=== PATIENT | female | born 1945 | race Caucasian/White ===

== ENCOUNTER 2020-02-14 16:56 | Inpatient (IN) ==
[2020-02-14] MEDS ORDERED: NS 0.9% 500 ml BAG 500 ML IV ONE (17:43)
[2020-02-14] MEDS ORDERED: Ondansetron 4 mg VIAL 2 MG/ML 2 ml VIAL IV ONE (22:28)
[2020-02-14 23:20] LABS: ABS Lymphocytes 1.7 10^3/ul (1.0-4.8); ABS Monocytes 0.8 10^3/ul (0-0.8); ABS Neutrophils 14.6 10^3/ul (1.5-7.7); Hematocrit 30 % (35-47); Hemoglobin 9.6 g/dL (12.0-16.0); Lymphocyte % 9.8 %; Mean Corpuscular HGB Conc 32 g/dL (31-36); Mean Corpuscular Hemoglobin 27 pg (27-31); Mean Corpuscular Volume 84 fL (80-97); Mean Platelet Volume 7.7 fL (7.4-10.4); Platelet Count 290 10^3/uL (150-450); Red Blood Count 3.58 10^6 /uL (3.70-4.87); Red Cell Distribution Width 20 % (10-15); White Blood Count 17.1 10^3/uL (3.5-10.8)
[2020-02-14 23:30] LABS: Activated Partial Thrombo Time 27.4 seconds (26.0-38.0); INR 0.95 (0.82-1.09)
[2020-02-14 23:38] LABS: ALT 20 U/L (7-52); AST 17 U/L (13-39); Albumin 2.6 g/dL (3.2-5.2); Alkaline Phosphatase 130 U/L (34-104); Anion Gap 12 mmol/L (2-11); BUN/Creatinine Ratio 14.1 (8-20); Blood Urea Nitrogen 50 mg/dL (6-24); C Reactive Protein 41.65 mg/L (<8.01); CO2 Carbon Dioxide 25 mmol/L (22-32); Calcium 9.1 mg/dL (8.6-10.3); Chloride 102 mmol/L (101-111); EGFR African American 15.2 (>60); EGFR Non-African American 12.6 (>60); Globulin 2.7 g/dL (2-4); Glucose 131 mg/dL (70-100); LDH 253 U/L (140-271); Potassium 3.2 mmol/L (3.5-5.0); Sodium 139 mmol/L (135-145); Total Protein 5.3 g/dL (6.4-8.9)
[2020-02-14] MEDS ORDERED: NS 0.9% 1000 ml BAG 500 ML IV ONE (23:43)
[2020-02-14 23:45] LABS: Troponin I 0.17 ng/mL (<0.03)
[2020-02-14 23:57] LABS: Ferritin 166.5 ng/mL (11-307)
[2020-02-15] MEDS ORDERED: Lactated Ringers 1000 ml BAG 1,000 ML IV SCH ×3 (02:00→17:26)
[2020-02-15 02:26] LABS: Magnesium 1.7 mg/dL (1.9-2.7)
[2020-02-15] MEDS: KCL 20 MEQ/100 ML IVPREMIX 20 MEQ/100 ML BAG IV SCH ×2 (03:10→05:03)
[2020-02-15 03:41] LABS: Influenza A Molecular Negative (Negative); Influenza B Molecular Negative (Negative)
[2020-02-15 04:00] LABS: Troponin I 0.18 ng/mL (<0.03)
[2020-02-15 04:07] LABS: Urine Appearance Turbid; Urine Bilirubin Negative (Negative); Urine Blood Negative (Negative); Urine Color Yellow; Urine Glucose Negative (Negative); Urine Ketones Negative (Negative); Urine Nitrite Negative (Negative); Urine Protein 1+(30 mg/dL) (Negative); Urine Specific Gravity 1.016 (1.010-1.030); Urine Urobilinogen Negative (Negative)
[2020-02-15 04:17] LABS: Urine Bacteria 2+ (Absent); Urine Red Blood Cell 3+(>10/hpf) (Absent); Urine Squamous Epithelial Cell Present (Absent); Urine White Blood Cell 3+(>20/hpf) (Absent)
[2020-02-15 04:48] LABS: Urine Creatinine Concentration 90.94 mg/dL
[2020-02-15] MEDS: Pantoprazole VIAL 40 MG VIAL IV SCH ×2 (05:04→15:02)
[2020-02-15] MEDS ORDERED: NS 0.9% 1000 ml BAG 1,000 ML IV SCH (05:30)
[2020-02-15] MEDS ORDERED: NS 0.9% 1000 ml BAG 1,000 ML IV ONE (05:34)
[2020-02-15] MEDS ORDERED: Magnesium Sulfate 2 gm BAG 2 GM/50 ML BAG IVPB ONE (05:35)
[2020-02-15 05:54] LABS: ABS Lymphocytes 1.5 10^3/ul (1.0-4.8); ABS Monocytes 0.9 10^3/ul (0-0.8); ABS Neutrophils 13.9 10^3/ul (1.5-7.7); Hematocrit 30 % (35-47); Hemoglobin 9.5 g/dL (12.0-16.0); INR 0.95 (0.82-1.09); Lymphocyte % 9.3 %; Mean Corpuscular HGB Conc 32 g/dL (31-36); Mean Corpuscular Hemoglobin 27 pg (27-31); Mean Corpuscular Volume 85 fL (80-97); Mean Platelet Volume 7.9 fL (7.4-10.4); Platelet Count 269 10^3/uL (150-450); Red Blood Count 3.55 10^6 /uL (3.70-4.87); Red Cell Distribution Width 20 % (10-15); White Blood Count 16.4 10^3/uL (3.5-10.8)
[2020-02-15] MEDS: cefTRIAXone 1 gm/50 mL NS BAG 1 GM/50 ML BAG IVPB SCH (06:03)
[2020-02-15 06:06] LABS: Anion Gap 11 mmol/L (2-11); BUN/Creatinine Ratio 14.3 (8-20); Blood Urea Nitrogen 50 mg/dL (6-24); CO2 Carbon Dioxide 24 mmol/L (22-32); Calcium 8.1 mg/dL (8.6-10.3); Chloride 106 mmol/L (101-111); Cholesterol 155 mg/dL; EGFR African American 15.5 (>60); EGFR Non-African American 12.8 (>60); Glucose 116 mg/dL (70-100); LDL Cholesterol 53 mg/dL; Potassium 4.1 mmol/L (3.5-5.0); Sodium 141 mmol/L (135-145); Triglycerides 168 mg/dL
[2020-02-15 06:24] LABS: Troponin I 0.16 ng/mL (<0.03)
[2020-02-15] MEDS ORDERED: Venlafaxine XR 75 mg PO SCH (09:00)
[2020-02-15] MEDS ORDERED: Morphine 4 MG/ML VIAL (1 ml) IV ONE (09:20)
[2020-02-15] MEDS: levETIRAcetam IV 250 MG in NS 0.9% 100 ml BAG 100 ML IVPB SCH ×2 (10:37→22:29)
[2020-02-15 11:25] LABS: Troponin I 0.14 ng/mL (<0.03)
[2020-02-15 20:04] LABS: Hematocrit 21 % (35-47); Hemoglobin 6.9 g/dL (12.0-16.0); Mean Corpuscular HGB Conc 33 g/dL (31-36); Mean Corpuscular Hemoglobin 28 pg (27-31); Mean Corpuscular Volume 85 fL (80-97); Mean Platelet Volume 7.2 fL (7.4-10.4); Platelet Count 207 10^3/uL (150-450); Red Blood Count 2.49 10^6 /uL (3.70-4.87); Red Cell Distribution Width 20 % (10-15); White Blood Count 8.4 10^3/uL (3.5-10.8)
[2020-02-16] MEDS: D5W 1/2 NS 1000 ml BAG 1,000 ML IV SCH ×2 (00:35→21:25)
[2020-02-16] MEDS: Pantoprazole VIAL 40 MG VIAL IV SCH ×3 (02:53→15:24)
[2020-02-16 05:08] LABS: ABS Eosinophils 0.2 10^3/ul (0-0.6); ABS Lymphocytes 0.9 10^3/ul (1.0-4.8); ABS Monocytes 0.4 10^3/ul (0-0.8); ABS Neutrophils 4.6 10^3/ul (1.5-7.7); Eosinophil % 3.3 %; Hematocrit 20 % (35-47); Hemoglobin 6.4 g/dL (12.0-16.0); Lymphocyte % 15.2 %; Mean Corpuscular HGB Conc 33 g/dL (31-36); Mean Corpuscular Hemoglobin 28 pg (27-31); Mean Corpuscular Volume 85 fL (80-97); Mean Platelet Volume 7.1 fL (7.4-10.4); Nucleated Red Blood Cells % 0.1; Platelet Count 209 10^3/uL (150-450); Red Blood Count 2.31 10^6 /uL (3.70-4.87); Red Cell Distribution Width 20 % (10-15); White Blood Count 6.2 10^3/uL (3.5-10.8)
[2020-02-16 05:23] LABS: BUN/Creatinine Ratio 15.1 (8-20); EGFR African American 18.5 (>60); EGFR Non-African American 15.3 (>60); Magnesium 2.2 mg/dL (1.9-2.7); Phosphorus 2.7 mg/dL (2.5-5.0); Potassium 3.3 mmol/L (3.5-5.0)
[2020-02-16] MEDS: cefTRIAXone 1 gm/50 mL NS BAG 1 GM/50 ML BAG IVPB SCH (07:19)
[2020-02-16] MEDS: HYDROmorphone 0.5 MG/0.5 ML SYRINGE IV SLOW PU PRN ×3 (10:04→21:19)
[2020-02-16] MEDS: levETIRAcetam IV 250 MG in NS 0.9% 100 ml BAG 100 ML IVPB SCH ×2 (10:18→21:27)
[2020-02-16 11:41] LABS: ABS Basophils 0.1 10^3/ul (0-0.2); ABS Eosinophils 0.2 10^3/ul (0-0.6); ABS Lymphocytes 0.7 10^3/ul (1.0-4.8); ABS Monocytes 0.3 10^3/ul (0-0.8); ABS Neutrophils 5.6 10^3/ul (1.5-7.7); Eosinophil % 3.4 %; Hematocrit 28 % (35-47); Hemoglobin 9.2 g/dL (12.0-16.0); Lymphocyte % 10.1 %; Mean Corpuscular HGB Conc 33 g/dL (31-36); Mean Corpuscular Hemoglobin 29 pg (27-31); Mean Corpuscular Volume 88 fL (80-97); Mean Platelet Volume 6.9 fL (7.4-10.4); Nucleated Red Blood Cells % 0.1; Platelet Count 212 10^3/uL (150-450); Red Blood Count 3.17 10^6 /uL (3.70-4.87); Red Cell Distribution Width 20 % (10-15); White Blood Count 6.9 10^3/uL (3.5-10.8)
[2020-02-16] MEDS ORDERED: Dextrose 50% Syringe 50 ml 25 GM/50 ML SYRINGE IV PUSH PRN (12:57)
[2020-02-17] MEDS: HYDROmorphone 0.5 MG/0.5 ML SYRINGE IV SLOW PU PRN ×4 (04:03→21:52)
[2020-02-17] MEDS: Pantoprazole VIAL 40 MG VIAL IV SCH ×2 (04:03→15:58)
[2020-02-17] MEDS: cefTRIAXone 1 gm/50 mL NS BAG 1 GM/50 ML BAG IVPB SCH (05:24)
[2020-02-17] MEDS: levETIRAcetam IV 250 MG in NS 0.9% 100 ml BAG 100 ML IVPB SCH ×2 (10:13→21:38)
[2020-02-17 11:16] LABS: ABS Basophils 0.1 10^3/ul (0-0.2); ABS Eosinophils 0.3 10^3/ul (0-0.6); ABS Lymphocytes 0.7 10^3/ul (1.0-4.8); ABS Monocytes 0.3 10^3/ul (0-0.8); ABS Neutrophils 5.9 10^3/ul (1.5-7.7); Hematocrit 30 % (35-47); Hemoglobin 9.9 g/dL (12.0-16.0); Lymphocyte % 10.2 %; Mean Corpuscular HGB Conc 33 g/dL (31-36); Mean Corpuscular Hemoglobin 29 pg (27-31); Mean Corpuscular Volume 87 fL (80-97); Mean Platelet Volume 6.7 fL (7.4-10.4); Platelet Count 239 10^3/uL (150-450); Red Blood Count 3.42 10^6 /uL (3.70-4.87); Red Cell Distribution Width 19 % (10-15); White Blood Count 7.3 10^3/uL (3.5-10.8)
[2020-02-17 11:57] LABS: Albumin 2.3 g/dL (3.2-5.2); BUN/Creatinine Ratio 13.4 (8-20); Calcium 8.1 mg/dL (8.6-10.3); EGFR African American 24.1 (>60); EGFR Non-African American 19.9 (>60); Globulin 2.4 g/dL (2-4); Potassium 2.8 mmol/L (3.5-5.0); Total Bilirubin 0.2 mg/dL (0.2-1.0); Total Protein 4.7 g/dL (6.4-8.9)
[2020-02-17] MEDS: KCL 20 MEQ/100 ML IVPREMIX 20 MEQ/100 ML BAG IV SCH ×3 (13:14→21:39)
[2020-02-17] MEDS: D5W 1/2 NS 1000 ml BAG 1,000 ML IV SCH ×2 (18:05→18:24)
[2020-02-18] MEDS: Pantoprazole VIAL 40 MG VIAL IV SCH ×2 (03:17→14:56)
[2020-02-18] MEDS: cefTRIAXone 1 gm/50 mL NS BAG 1 GM/50 ML BAG IVPB SCH (06:39)
[2020-02-18 08:55] LABS: ABS Basophils 0.1 10^3/ul (0-0.2); ABS Eosinophils 0.3 10^3/ul (0-0.6); ABS Lymphocytes 0.8 10^3/ul (1.0-4.8); ABS Monocytes 0.3 10^3/ul (0-0.8); ABS Neutrophils 6.2 10^3/ul (1.5-7.7); Eosinophil % 3.8 %; Hematocrit 28 % (35-47); Hemoglobin 9.3 g/dL (12.0-16.0); Lymphocyte % 10.1 %; Mean Corpuscular HGB Conc 33 g/dL (31-36); Mean Corpuscular Hemoglobin 29 pg (27-31); Mean Corpuscular Volume 88 fL (80-97); Mean Platelet Volume 6.4 fL (7.4-10.4); Platelet Count 217 10^3/uL (150-450); Red Blood Count 3.18 10^6 /uL (3.70-4.87); Red Cell Distribution Width 19 % (10-15); White Blood Count 7.7 10^3/uL (3.5-10.8)
[2020-02-18 09:06] LABS: Calcium 7.9 mg/dL (8.6-10.3); EGFR African American 32.7 (>60); Magnesium 1.6 mg/dL (1.9-2.7); Potassium 3.1 mmol/L (3.5-5.0)
[2020-02-18 09:07] LABS: % Iron Saturation 14 % (15-55); Iron 26 ug/dL (50-212); Total Iron Binding Capacity 182 mcg/dL (250-450); Transferrin 130 mg/dL (203-362); Unsaturated Iron Binding < 167 ug/dL
[2020-02-18 09:29] LABS: Ferritin 152.6 ng/mL (11-307)
[2020-02-18 09:32] LABS: Folate > 20.00 ng/mL (>3.99)
[2020-02-18 09:33] LABS: Vitamin B12 1035 pg/mL (180-914)
[2020-02-18] MEDS: HYDROmorphone 0.5 MG/0.5 ML SYRINGE IV SLOW PU PRN ×3 (10:25→21:27)
[2020-02-18] MEDS: levETIRAcetam IV 250 MG in NS 0.9% 100 ml BAG 100 ML IVPB SCH ×2 (10:25→21:27)
[2020-02-18] MEDS ORDERED: Magnesium Sulfate 2 gm BAG 2 GM/50 ML BAG IVPB ONE (10:33)
[2020-02-18] MEDS: KCL 20 MEQ/100 ML IVPREMIX 20 MEQ/100 ML BAG IV SCH ×2 (14:52→18:42)
[2020-02-19] MEDS: HYDROmorphone 0.5 MG/0.5 ML SYRINGE IV SLOW PU PRN ×3 (02:31→21:25)
[2020-02-19] MEDS: Pantoprazole VIAL 40 MG VIAL IV SCH ×2 (02:32→14:11)
[2020-02-19 04:55] LABS: ABS Basophils 0.1 10^3/ul (0-0.2); ABS Eosinophils 0.4 10^3/ul (0-0.6); ABS Lymphocytes 1.1 10^3/ul (1.0-4.8); ABS Monocytes 0.5 10^3/ul (0-0.8); ABS Neutrophils 6.5 10^3/ul (1.5-7.7); Eosinophil % 4.5 %; Hematocrit 27 % (35-47); Hemoglobin 9.1 g/dL (12.0-16.0); Lymphocyte % 12.8 %; Mean Corpuscular HGB Conc 33 g/dL (31-36); Mean Corpuscular Hemoglobin 29 pg (27-31); Mean Corpuscular Volume 87 fL (80-97); Mean Platelet Volume 6.3 fL (7.4-10.4); Platelet Count 217 10^3/uL (150-450); Red Blood Count 3.12 10^6 /uL (3.70-4.87); Red Cell Distribution Width 19 % (10-15); White Blood Count 8.6 10^3/uL (3.5-10.8)
[2020-02-19 05:09] LABS: Calcium 7.5 mg/dL (8.6-10.3); Potassium 3.2 mmol/L (3.5-5.0)
[2020-02-19 05:15] LABS: BUN/Creatinine Ratio 10.4 (8-20); EGFR African American 39.8 (>60); EGFR Non-African American 32.9 (>60)
[2020-02-19] MEDS: D5W 1/2 NS 1000 ml BAG 1,000 ML IV SCH (07:49)
[2020-02-19] MEDS ORDERED: Magnesium Sulfate IV 1GM/100ML 1 GM/100 ML BAG IV ONE (08:07)
[2020-02-19] MEDS: Iron Sucrose 200 MG in NS 0.9% 100 ml BAG 100 ML IVPB SCH (10:36)
[2020-02-19] MEDS: levETIRAcetam IV 250 MG in NS 0.9% 100 ml BAG 100 ML IVPB SCH ×2 (10:38→20:47)
[2020-02-19] MEDS ORDERED: D5W 1/2 NS 1000 ml BAG 1,000 ML IV SCH (12:35)
[2020-02-19] MEDS: Enoxaparin 30 MG/0.3 ML SYR SUBCUT SCH (14:11)
[2020-02-19] MEDS ORDERED: LORazepam 2 mg VIAL 1 ml IV PUSH ONE (21:44)
[2020-02-19] MEDS ORDERED: Lorazepam PYXIS KEY PRN (21:44)
[2020-02-20] MEDS: Pantoprazole VIAL 40 MG VIAL IV SCH ×2 (02:41→14:15)
[2020-02-20] MEDS: HYDROmorphone 0.5 MG/0.5 ML SYRINGE IV SLOW PU PRN ×3 (02:41→20:20)
[2020-02-20] MEDS: Iron Sucrose 200 MG in NS 0.9% 100 ml BAG 100 ML IVPB SCH (08:06)
[2020-02-20] MEDS: levETIRAcetam IV 250 MG in NS 0.9% 100 ml BAG 100 ML IVPB SCH (11:24)
[2020-02-20 11:44] LABS: Anion Gap 14 mmol/L (2-11); Blood Urea Nitrogen 13 mg/dL (6-24); CO2 Carbon Dioxide 13 mmol/L (22-32); Calcium 8.6 mg/dL (8.6-10.3); Chloride 114 mmol/L (101-111); Glucose 84 mg/dL (70-100); Magnesium 2.1 mg/dL (1.9-2.7); Potassium 3.3 mmol/L (3.5-5.0); Sodium 141 mmol/L (135-145)
[2020-02-20 12:40] LABS: ABS Basophils 0.1 10^3/ul (0-0.2); ABS Eosinophils 0.4 10^3/ul (0-0.6); ABS Lymphocytes 1.1 10^3/ul (1.0-4.8); ABS Monocytes 0.4 10^3/ul (0-0.8); ABS Neutrophils 6.3 10^3/ul (1.5-7.7); Eosinophil % 4.2 %; Hematocrit 27 % (35-47); Lymphocyte % 13.6 %; Mean Corpuscular HGB Conc 33 g/dL (31-36); Mean Corpuscular Hemoglobin 29 pg (27-31); Mean Corpuscular Volume 88 fL (80-97); Mean Platelet Volume 6.6 fL (7.4-10.4); Platelet Count 247 10^3/uL (150-450); Red Blood Count 3.13 10^6 /uL (3.70-4.87); Red Cell Distribution Width 20 % (10-15); White Blood Count 8.3 10^3/uL (3.5-10.8)
[2020-02-20 13:02] LABS: BUN/Creatinine Ratio 9.1 (8-20); EGFR African American 43.4 (>60); EGFR Non-African American 35.9 (>60)
[2020-02-20] MEDS: Enoxaparin 30 MG/0.3 ML SYR SUBCUT SCH (14:15)
[2020-02-20] MEDS: KCL 20 MEQ/100 ML IVPREMIX 20 MEQ/100 ML BAG IV SCH ×2 (15:12→17:48)
[2020-02-21] MEDS: HYDROmorphone 0.5 MG/0.5 ML SYRINGE IV SLOW PU PRN ×4 (03:59→18:04)
[2020-02-21] MEDS: Pantoprazole VIAL 40 MG VIAL IV SCH ×2 (04:00→13:42)
[2020-02-21 05:01] LABS: ABS Basophils 0.1 10^3/ul (0-0.2); ABS Eosinophils 0.4 10^3/ul (0-0.6); ABS Lymphocytes 1.4 10^3/ul (1.0-4.8); ABS Monocytes 0.6 10^3/ul (0-0.8); ABS Neutrophils 5.8 10^3/ul (1.5-7.7); Eosinophil % 4.6 %; Hematocrit 26 % (35-47); Hemoglobin 8.5 g/dL (12.0-16.0); Lymphocyte % 16.9 %; Mean Corpuscular HGB Conc 33 g/dL (31-36); Mean Corpuscular Hemoglobin 29 pg (27-31); Mean Corpuscular Volume 88 fL (80-97); Mean Platelet Volume 6.6 fL (7.4-10.4); Platelet Count 236 10^3/uL (150-450); Red Cell Distribution Width 20 % (10-15); White Blood Count 8.2 10^3/uL (3.5-10.8)
[2020-02-21 05:22] LABS: EGFR African American 44.5 (>60); EGFR Non-African American 36.8 (>60); Magnesium 1.9 mg/dL (1.9-2.7); Potassium 3.1 mmol/L (3.5-5.0)
[2020-02-21] MEDS: Iron Sucrose 200 MG in NS 0.9% 100 ml BAG 100 ML IVPB SCH (09:39)
[2020-02-21] MEDS: KCL 20 MEQ/100 ML IVPREMIX 20 MEQ/100 ML BAG IV SCH ×3 (10:03→16:37)
[2020-02-21] MEDS: Enoxaparin 30 MG/0.3 ML SYR SUBCUT SCH (13:45)
[2020-02-22] MEDS: Pantoprazole VIAL 40 MG VIAL IV SCH (04:24)
[2020-02-22] MEDS: HYDROmorphone 0.5 MG/0.5 ML SYRINGE IV SLOW PU PRN (04:24)
[2020-02-22] MEDS: Isosorbide Mononit ER 30mg TAB PO SCH (09:33)
[2020-02-22] MEDS: Iron Sucrose 200 MG in NS 0.9% 100 ml BAG 100 ML IVPB SCH (09:34)
[2020-02-22 09:38] LABS: ABS Basophils 0.1 10^3/ul (0-0.2); ABS Eosinophils 0.3 10^3/ul (0-0.6); ABS Lymphocytes 0.9 10^3/ul (1.0-4.8); ABS Monocytes 0.5 10^3/ul (0-0.8); ABS Neutrophils 6.9 10^3/ul (1.5-7.7); Eosinophil % 3.5 %; Hematocrit 27 % (35-47); Hemoglobin 9.1 g/dL (12.0-16.0); Lymphocyte % 9.9 %; Mean Corpuscular HGB Conc 34 g/dL (31-36); Mean Corpuscular Hemoglobin 30 pg (27-31); Mean Corpuscular Volume 88 fL (80-97); Mean Platelet Volume 6.5 fL (7.4-10.4); Platelet Count 287 10^3/uL (150-450); Red Blood Count 3.09 10^6 /uL (3.70-4.87); Red Cell Distribution Width 20 % (10-15); White Blood Count 8.6 10^3/uL (3.5-10.8)
[2020-02-22 09:55] LABS: Albumin 2.2 g/dL (3.2-5.2); Albumin/Globulin Ratio 0.9 (1-3); BUN/Creatinine Ratio 9.5 (8-20); Calcium 8.2 mg/dL (8.6-10.3); EGFR African American 50.2 (>60); EGFR Non-African American 41.5 (>60); Globulin 2.5 g/dL (2-4); Magnesium 1.7 mg/dL (1.9-2.7); Potassium 3.6 mmol/L (3.5-5.0); Total Bilirubin 0.3 mg/dL (0.2-1.0); Total Protein 4.7 g/dL (6.4-8.9)
[2020-02-22] MEDS: Enoxaparin 30 MG/0.3 ML SYR SUBCUT SCH (14:20)
[2020-02-22] MEDS ORDERED: Ondansetron ODT 4 mg TAB 4 MG TAB SL ONE (14:28)
[2020-02-22 23:54] LABS: Calcium 7.9 mg/dL (8.6-10.3); Magnesium 1.6 mg/dL (1.9-2.7); Potassium 3.8 mmol/L (3.5-5.0)
[2020-02-22 23:59] LABS: BUN/Creatinine Ratio 11.4 (8-20); EGFR African American 47.6 (>60); EGFR Non-African American 39.3 (>60)
[2020-02-23 01:34] LABS: ABS Basophils 0.1 10^3/ul (0-0.2); ABS Eosinophils 0.2 10^3/ul (0-0.6); ABS Lymphocytes 1.5 10^3/ul (1.0-4.8); ABS Monocytes 0.9 10^3/ul (0-0.8); ABS Neutrophils 9.2 10^3/ul (1.5-7.7); Eosinophil % 2.1 %; Hematocrit 28 % (35-47); Hemoglobin 9.3 g/dL (12.0-16.0); Lymphocyte % 12.9 %; Mean Corpuscular HGB Conc 33 g/dL (31-36); Mean Corpuscular Hemoglobin 29 pg (27-31); Mean Corpuscular Volume 88 fL (80-97); Nucleated Red Blood Cells % 0.2; Platelet Count 256 10^3/uL (150-450); Red Blood Count 3.19 10^6 /uL (3.70-4.87); Red Cell Distribution Width 20 % (10-15)
[2020-02-23] MEDS ORDERED: Magnesium Sulfate 2 gm BAG 2 GM/50 ML BAG IVPB ONE (02:16)
[2020-02-23 05:09] LABS: ABS Basophils 0.1 10^3/ul (0-0.2); ABS Eosinophils 0.3 10^3/ul (0-0.6); ABS Lymphocytes 1.7 10^3/ul (1.0-4.8); ABS Monocytes 0.6 10^3/ul (0-0.8); ABS Neutrophils 6.5 10^3/ul (1.5-7.7); Eosinophil % 3.6 %; Hematocrit 26 % (35-47); Hemoglobin 8.4 g/dL (12.0-16.0); Lymphocyte % 18.2 %; Mean Corpuscular HGB Conc 33 g/dL (31-36); Mean Corpuscular Hemoglobin 29 pg (27-31); Mean Corpuscular Volume 88 fL (80-97); Mean Platelet Volume 6.8 fL (7.4-10.4); Nucleated Red Blood Cells % 0.1; Platelet Count 332 10^3/uL (150-450); Red Blood Count 2.93 10^6 /uL (3.70-4.87); Red Cell Distribution Width 21 % (10-15); White Blood Count 9.2 10^3/uL (3.5-10.8)
[2020-02-23 05:32] LABS: BUN/Creatinine Ratio 11.3 (8-20); Calcium 8.1 mg/dL (8.6-10.3); EGFR African American 47.2 (>60); Magnesium 1.6 mg/dL (1.9-2.7); Potassium 3.4 mmol/L (3.5-5.0)
[2020-02-23] MEDS: Isosorbide Mononit ER 30mg TAB PO SCH (08:17)
[2020-02-23] MEDS: Potassium Chlor 20 meq TAB.ER PO ONE ×2 (08:58→12:00)
[2020-02-23] MEDS: Ondansetron ODT 4 mg TAB 4 MG TAB SL PRN ×2 (10:38→18:39)
[2020-02-23] MEDS: Enoxaparin 30 MG/0.3 ML SYR SUBCUT SCH (13:17)
[2020-02-23] MEDS: KCL 20 MEQ/100 ML IVPREMIX 20 MEQ/100 ML BAG IV SCH ×2 (14:29→18:14)
[2020-02-24 06:40] LABS: ABS Basophils 0.1 10^3/ul (0-0.2); ABS Eosinophils 0.2 10^3/ul (0-0.6); ABS Lymphocytes 0.9 10^3/ul (1.0-4.8); ABS Monocytes 0.4 10^3/ul (0-0.8); ABS Neutrophils 6.9 10^3/ul (1.5-7.7); Eosinophil % 2.6 %; Hematocrit 25 % (35-47); Hemoglobin 8.4 g/dL (12.0-16.0); Lymphocyte % 10.5 %; Mean Corpuscular HGB Conc 33 g/dL (31-36); Mean Corpuscular Hemoglobin 29 pg (27-31); Mean Corpuscular Volume 89 fL (80-97); Mean Platelet Volume 6.5 fL (7.4-10.4); Platelet Count 405 10^3/uL (150-450); Red Blood Count 2.87 10^6 /uL (3.70-4.87); Red Cell Distribution Width 21 % (10-15); White Blood Count 8.4 10^3/uL (3.5-10.8)
[2020-02-24 06:52] LABS: Calcium 7.7 mg/dL (8.6-10.3); EGFR African American 41.1 (>60); EGFR Non-African American 33.9 (>60); Magnesium 1.6 mg/dL (1.9-2.7); Potassium 3.1 mmol/L (3.5-5.0)
[2020-02-24] MEDS: Isosorbide Mononit ER 30mg TAB PO SCH (09:35)
[2020-02-24] MEDS ORDERED: Magnesium Sulfate 2 gm BAG 2 GM/50 ML BAG IVPB ONE (10:06)
[2020-02-24] MEDS ORDERED: Potassium Chlor 20 meq TAB.ER PO ONE (12:55)
[2020-02-24] MEDS: Enoxaparin 30 MG/0.3 ML SYR SUBCUT SCH (12:58)
[2020-02-24] MEDS: KCL 20 MEQ/100 ML IVPREMIX 20 MEQ/100 ML BAG IV SCH ×2 (15:53→18:34)
[2020-02-25] MEDS: Isosorbide Mononit ER 30mg TAB PO SCH (08:01)
[2020-02-25 12:52] LABS: ABS Basophils 0.1 10^3/ul (0-0.2); ABS Eosinophils 0.4 10^3/ul (0-0.6); ABS Lymphocytes 1.6 10^3/ul (1.0-4.8); ABS Monocytes 0.4 10^3/ul (0-0.8); ABS Neutrophils 7.4 10^3/ul (1.5-7.7); Eosinophil % 3.7 %; Hematocrit 27 % (35-47); Hemoglobin 8.9 g/dL (12.0-16.0); Lymphocyte % 16.4 %; Mean Corpuscular HGB Conc 33 g/dL (31-36); Mean Corpuscular Hemoglobin 30 pg (27-31); Mean Corpuscular Volume 91 fL (80-97); Mean Platelet Volume 7.4 fL (7.4-10.4); Nucleated Red Blood Cells % 0.1; Platelet Count 381 10^3/uL (150-450); Red Cell Distribution Width 21 % (10-15); White Blood Count 9.9 10^3/uL (3.5-10.8)
[2020-02-25] MEDS: Enoxaparin 30 MG/0.3 ML SYR SUBCUT SCH (13:04)
[2020-02-25 13:10] LABS: BUN/Creatinine Ratio 12.6 (8-20); Calcium 7.6 mg/dL (8.6-10.3); EGFR African American 43.4 (>60); EGFR Non-African American 35.9 (>60); Magnesium 1.9 mg/dL (1.9-2.7); Potassium 4.6 mmol/L (3.5-5.0)
[2020-02-26 07:17] LABS: BUN/Creatinine Ratio 10.9 (8-20); Calcium 7.2 mg/dL (8.6-10.3); EGFR African American 45.6 (>60); EGFR Non-African American 37.7 (>60); Magnesium 1.7 mg/dL (1.9-2.7); Potassium 3.7 mmol/L (3.5-5.0)
[2020-02-26] MEDS ORDERED: Magnesium Sulfate 2 gm BAG 2 GM/50 ML BAG IVPB ONE (08:07)
[2020-02-26] MEDS: Isosorbide Mononit ER 30mg TAB PO SCH (09:09)
[2020-02-26] MEDS: Enoxaparin 30 MG/0.3 ML SYR SUBCUT SCH (13:42)
[2020-02-27] MEDS: Isosorbide Mononit ER 30mg TAB PO SCH (08:44)
[2020-02-27] MEDS ORDERED: Magnesium Sulfate 2 gm BAG 2 GM/50 ML BAG IVPB ONE (09:05)
[2020-02-27 12:30] VITALS: BP 98/40
[2020-02-27] MEDS: Enoxaparin 30 MG/0.3 ML SYR SUBCUT SCH (12:51)
== END 2020-02-27 14:32 | DRG 871 ==
LOC: ED 16:56 → ICU 02-15 01:18 → MED 02-16 15:03 → MEDTELE 02-23 05:39
PROVIDERS: ADMIT Internal Medicine; ATTEND Internal Medicine

== ENCOUNTER 2020-04-10 23:15 | Inpatient (IN) ==
[2020-04-10] MEDS ORDERED: NS 0.9% 1000 ml BAG 1,000 ML IV.FLUID IV ONE (23:30)
[2020-04-11 00:03] LABS: Hematocrit 28 % (35-47); Hemoglobin 8.8 g/dL (12.0-16.0); Mean Corpuscular HGB Conc 31 g/dL (31-36); Mean Corpuscular Hemoglobin 28 pg (27-31); Mean Corpuscular Volume 89 fL (80-97); Mean Platelet Volume 7.7 fL (7.4-10.4); Platelet Count 244 10^3/uL (150-450); Red Blood Count 3.17 10^6 /uL (3.70-4.87); Red Cell Distribution Width 17 % (10-15); White Blood Count 25.3 10^3/uL (3.5-10.8)
[2020-04-11 00:19] LABS: ALT 8 U/L (7-52); AST 15 U/L (13-39); Albumin 2.6 g/dL (3.2-5.2); Albumin/Globulin Ratio 0.8 (1-3); Alkaline Phosphatase 150 U/L (34-104); BUN/Creatinine Ratio 17.4 (8-20); Blood Urea Nitrogen 71 mg/dL (6-24); C Reactive Protein 36.84 mg/L (<8.01); Calcium 8.8 mg/dL (8.6-10.3); Chloride 106 mmol/L (101-111); EGFR African American 12.9 (>60); EGFR Non-African American 10.7 (>60); Globulin 3.1 g/dL (2-4); Glucose 122 mg/dL (70-100); Sodium 131 mmol/L (135-145); Total Protein 5.7 g/dL (6.4-8.9)
[2020-04-11 00:21] LABS: Activated Partial Thrombo Time 28.4 seconds (26.0-38.0); INR 1.08 (0.82-1.09)
[2020-04-11 00:23] LABS: Anion Gap 17 mmol/L (2-11); CO2 Carbon Dioxide 8 mmol/L (22-32); Potassium 5.4 mmol/L (3.5-5.0); Troponin I 0.05 ng/mL (<0.03)
[2020-04-11 00:26] LABS: Urine Appearance Turbid; Urine Bilirubin Negative (Negative); Urine Blood 2+ (Negative); Urine Color Yellow; Urine Glucose Negative (Negative); Urine Ketones Negative (Negative); Urine Nitrite Negative (Negative); Urine Protein 2+(100 mg/dL) (Negative); Urine Specific Gravity 1.016 (1.010-1.030); Urine Urobilinogen Negative (Negative)
[2020-04-11] MEDS ORDERED: Piperacillin/Tazobac ADVAN 3.375 GM in NS 0.9% 100 ml BAG 100 ML IVPB ONE (00:29)
[2020-04-11 00:49] LABS: Urine Bacteria 4+ (Absent); Urine Red Blood Cell 4+ (Absent); Urine White Blood Cell 4+ (Absent)
[2020-04-11 00:50] LABS: Urine Squamous Epithelial Cell P (Absent)
[2020-04-11] MEDS ORDERED: Morphine 2 MG/ML SYRINGE ONE (00:58)
[2020-04-11] MEDS ORDERED: Morphine 4 MG/ML VIAL (1 ml) IM ONE (01:40)
[2020-04-11 02:04] LABS: ABS Lymphocytes 1.2 10^3/ul (1.0-4.8); ABS Monocytes 0.6 10^3/ul (0-0.8); ABS Neutrophils 23.5 10^3/ul (1.5-7.7); Lymphocyte % 4.8 %
[2020-04-11] MEDS ORDERED: Linezolid 600 MG IVPREMIX(*) 600 MG/300 ML BAG IVPB SCH ×2 (04:00→05:00)
[2020-04-11] MEDS: Norepinephrine 16MCG/ML IVPRE 4,000 MCG/250 ML BAG IV SCH ×2 (05:15→10:34)
[2020-04-11] MEDS ORDERED: Sodium Bicarb 8.4% Vial 50 ML 150 MEQ in D5W 1000 ml BAG 850 ML IV SCH (06:00)
[2020-04-11] MEDS ORDERED: Lactated Ringers 1000 ml BAG 500 ML IV SCH (06:00)
[2020-04-11] MEDS ORDERED: Pantoprazole VIAL 40 MG VIAL IV SCH (06:00)
[2020-04-11] MEDS ORDERED: levETIRAcetam IV 250 MG in NS 0.9% 100 ml BAG 100 ML IVPB SCH (06:00)
[2020-04-11] MEDS ORDERED: Sodium Bicarbonate 8.4% VIAL 1 MEQ/ML 50 ml VIAL (50 meq) IV ONE (06:03)
[2020-04-11] MEDS: Norepinephrine 16MCG/ML IVPRE 4,000 MCG/250 ML BAG IV ONE ×2 (06:11→06:29)
[2020-04-11] MEDS ORDERED: Sodium Bicarbonate 8.4% SYR 50 ml SYRINGE IV ONE (06:21)
[2020-04-11] MEDS ORDERED: Hydrocortisone INJ 100 MG/2ML 2 ML VIAL IV ONE (08:21)
[2020-04-11] MEDS ORDERED: Heparin 5000 UNITS/ML 1 mL VIAL SUBCUT SCH (09:00)
[2020-04-11] MEDS ORDERED: Zosyn per Pharmacy NOTE FOLLOW UP PRN (10:17)
[2020-04-11] MEDS ORDERED: HYDROmorphone 0.5 MG/0.5 ML SYRINGE IV SLOW PU PRN (10:55)
[2020-04-11] MEDS ORDERED: HYDROmorphone 0.5 MG/0.5 ML SYRINGE ONE (10:56)
[2020-04-11] MEDS ORDERED: LORazepam 2 mg VIAL 1 ml IV PUSH PRN ×2 (10:59→11:08)
[2020-04-11] MEDS ORDERED: Lorazepam PYXIS KEY PRN (10:59)
[2020-04-11] MEDS ORDERED: LORazepam 2 mg VIAL 1 ml ONE (11:06)
[2020-04-11] MEDS ORDERED: Lorazepam PYXIS KEY ONE (11:06)
[2020-04-11 11:47] VITALS: BP 90/65
[2020-04-11] MEDS ORDERED: ZOSYN 3.375 GM Q12H per EXTENDED INFUSION IV SCH (14:00)
[2020-04-11] MEDS ORDERED: Hydrocortisone INJ 100 MG/2ML 2 ML VIAL IV SCH (14:00)
[2020-04-11 15:21] LABS: Influenza A Molecular Negative (Negative); Influenza B Molecular Negative (Negative)
[2020-04-11] MEDS ORDERED: Acetaminophen IV 1 GM/100ML 100 ML IVPB ONE (23:45)
== END 2020-04-11 11:39 | disposition expired | DRG 871 ==
LOC: ED 23:15 → ICU 04-11 02:10
PROVIDERS: ADMIT Student in an Organized Health Care Education/Training Program; ATTEND Student in an Organized Health Care Education/Training Program